=== PATIENT | female | born 1955 | race Caucasian/White ===

== ENCOUNTER 2016-06-20 09:35 | Emergency (ER) | payer MEDICAID ==
[~2016-06-20] VITALS: Ht 157.5 cm; Wt 72.6 kg
--- NOTE | 2016-06-20 09:35 | NUR ---
Patient was BIBA at and taken to bed 06 via gurney per EMS.
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
[2016-06-20 09:42] VITALS: BP 160/100
--- NOTE | 2016-06-20 09:51 | NUR ---
Dr. Estrella evaluating patient at bedside.
[2016-06-20] MEDS ORDERED: KETOROLAC 60 MG/2 ML VIAL IM ONE (10:00)
--- NOTE | 2016-06-20 10:18 | NUR ---
PT WENT TO XRAY ACCOMAPANIED BY TECH;NO ACUTE DISTRESS NOTED AT THIS TIME.
--- NOTE | 2016-06-20 10:43 | NUR ---
Patient back from XRAY via [facility].
--- NOTE | 2016-06-20 10:48 | NUR ---
PT RESTING ON BED; AT BEDSIDE;NO ACUTE DISTESS NOTED AT THIS TIME;WILL CONTINUE TO MONITOR PT.
--- NOTE | 2016-06-20 11:21 | NUR ---
Patient discharged with v/s stable. Written and verbal after care instructions given and explained.Patient alert, oriented and verbalized understanding of instructions. Ambulatory with steady gait. All questions addressed prior to discharge. ID band removed. Patient advised to follow up with PMD. Rx of NORCO AND MOTRIN given. Patient educated on indication of medication including possible reaction and side effects. Opportunity to ask questions provided and answered.
[2016-06-20 11:22] VITALS: BP 141/72
== END 2016-06-20 11:21 | disposition home or self-care (01) ==
LOC: MED 09:35
DX: S13.9XXA Sprain of joints and ligaments of unspecified parts of neck, initial encounter (principal); M54.5 Low back pain; Z90.710 Acquired absence of both cervix and uterus; V89.2XXA Person injured in unspecified motor-vehicle accident, traffic, initial encounter; Y93.89 Activity, other specified; Y92.89 Other specified places as the place of occurrence of the external cause; Y99.8 Other external cause status
CPT/HCPCS: 72050; 72110; 96372; 99284; J1885